=== PATIENT | female | born 1935 | race Caucasian/White ===

== ENCOUNTER 2016-12-08 18:31 | Emergency (ER) | payer MEDICARE, BC | END 2016-12-08 22:03 | disposition home or self-care (01) | LOC: ER 18:31 | DX: R41.82 Altered mental status, unspecified (principal); R44.1 Visual hallucinations; G51.0 Bell's palsy; I10 Essential (primary) hypertension; E11.9 Type 2 diabetes mellitus without complications; Z79.84 Long term (current) use of oral hypoglycemic drugs; Z79.899 Other long term (current) drug therapy | CPT/HCPCS: 36415; 70450; 80053; 81003; 84439; 84443; 85025; 99284; G0479; 80307 ==